=== PATIENT | female | born 1945 | race Caucasian/White ===

== ENCOUNTER 2021-04-06 10:54 | Outpatient (CLI) | payer MEDICARE, BC | END 2021-04-06 10:55 | disposition home or self-care (01) | LOC: CSHWCC 10:54 | PROVIDERS: ATTEND Nurse Practitioner Family | DX: L98.492 Non-pressure chronic ulcer of skin of other sites with fat layer exposed (principal); I26.99 Other pulmonary embolism without acute cor pulmonale; R60.1 Generalized edema; Z85.818 Personal history of malignant neoplasm of other sites of lip, oral cavity, and pharynx | CPT/HCPCS: 99203; G0463 ==

== ENCOUNTER 2021-05-04 13:01 | Outpatient (CLI) | payer MEDICARE, BC | END 2021-05-04 13:02 | disposition home or self-care (01) | LOC: CSHWCC 13:01 | PROVIDERS: ATTEND Nurse Practitioner Family | DX: L98.492 Non-pressure chronic ulcer of skin of other sites with fat layer exposed (principal); I26.99 Other pulmonary embolism without acute cor pulmonale; R60.1 Generalized edema; Z85.818 Personal history of malignant neoplasm of other sites of lip, oral cavity, and pharynx ==

== ENCOUNTER 2021-06-01 14:18 | Outpatient (CLI) | payer MEDICARE, BC | END 2021-06-01 14:19 | disposition home or self-care (01) | LOC: CSHWCC 14:18 | PROVIDERS: ATTEND Nurse Practitioner Family | DX: L98.492 Non-pressure chronic ulcer of skin of other sites with fat layer exposed (principal); L98.499 Non-pressure chronic ulcer of skin of other sites with unspecified severity; I26.99 Other pulmonary embolism without acute cor pulmonale; R60.1 Generalized edema; Z85.818 Personal history of malignant neoplasm of other sites of lip, oral cavity, and pharynx ==